=== PATIENT | female | born 1985 | race American Indian/Alaskan Native ===

== ENCOUNTER 2021-01-18 19:04 | Outpatient (CLI) | payer OTHER ==
[2021-01-18 20:41] LABS: Hematocrit 24.3 % (30.3-42.9); Hemoglobin 7.8 gm/dl (10.1-14.3); Mean Corpuscular HGB Conc 32 % (30-34); Mean Corpuscular Volume 75 fl (79-97); Platelet Count 253 K/mm3 (140-440); Red Blood Count 3.24 M/mm3 (3.65-5.03); Red Cell Distribution Width 18.8 % (13.2-15.2)
--- NOTE | 2021-01-18 21:13 | Event Note ---
Date: 01/18/21 SVE unchanged from office and pt denies feeling contractions since presenting to triage. Breech presentation noted; Cat 1 FHT's. Preeclampsia labs ordered for BP's. Dr Moran made aware. No further orders recv'd.
[2021-01-18 21:23] LABS: Alanine Aminotransferase 22 units/L (7-56); Uric Acid 4.4 mg/dL (3.5-7.6)
[2021-01-18 23:35] LABS: Bacteria,Urine 1+ /HPF (Negative); Bilirubin,Urine NEG (Negative); Blood,Urine SM (Negative); Color,Urine Straw (Yellow); Protein,Urine <15 mg/dL mg/dL (Negative); Urobilinogen,Urine < 2.0 mg/dL (<2.0)
[2021-01-18 23:55] VITALS: BP 143/88
--- NOTE | 2021-01-19 00:07 | Event Note ---
Date: 01/18/21 Pt denies having abdominal pain, vision changes, RUQ pain, chest pain, and ORDAZ. VS and lab results reviewed with Dr. Moran. Discharge orders recv'd to be given with preeclampsia precautions. Preeclampsia and labor precautions given to pt. Pt verbalizes understanding. Pt reports chronic anemia, and home Rx for iron supplements and stool softener, but not taking them; advised Ferrous sulfate PO TID, Colace BID; Reviewed risks of surgery with anemia status and plan for CS @39wks EGA. Pt agrees to take Rx as prescribed until after delivery and to call with any changes in SSx.
== END 2021-01-19 00:13 | disposition home or self-care (01) ==
LOC: TRG 19:04 → APU 20:00 → TRG 01-19 00:13
PROVIDERS: ATTEND Obstetrics & Gynecology
DX: I10 Essential (primary) hypertension (principal)
CPT/HCPCS: 36415; 59025; 81001; 82565; 83615; 84450; 84460; 84550; 85027

== ENCOUNTER 2021-01-25 19:53 | Inpatient (IN) | payer OTHER ==
--- NOTE | 2021-01-25 14:47 | History and Physical Report ---
History of Present Illness Date of examination: 01/24/21 Chief complaint: IUP@39 weeks, malpresentation. She desires to proceed with delivery. History of present illness: EDC Calculations by LMP: 01/31/2021 Past History : 4 Term Births: 3 Premature Births: 0 Living Children: 3 Para: 3 Mult. Births: 0 Prev : 0 Prev. attempt? 0 Aborta: 0 Elect. Ab: 0 Spont. Ab: 0 Ectopics: 0 # 1 Delivery date: 2009 Weeks Gestation: 38+0 labor: no Delivery type: Hours of labor: <24hrs Anesthesia type: epidural Delivery location: [facility] [place] Sex: Male weight: 5#11 Comments: IOL for elevated b/p # 2 Delivery date: 2011 Weeks Gestation: 38+0 labor: no Delivery type: Hours of labor: ?? Anesthesia type: epidural Delivery location: [facility] [place] Infant Sex: Male weight: 5# Comments: no complications # 3 Delivery date: 2017 Weeks Gestation: 38+0 labor: no Delivery type: Hours of labor: ?? Anesthesia type: epidural Delivery location: [facility] [place] Infant Sex: Female weight: 5# Comments: No complications Past Medical History: Blood Transfusion (2011) Anemia Past Surgical History: Negative Past Surgical History Past Medical History Surgery (Non-glass presser): Negative Past Surgical History Abnormal PAP: positive, age 19, normal since Family Hx: Breast CA - Mat Aunt Risk Factors: Smoked Tobacco Use: Never smoker Alcohol Use: no Drug Use: no Previous Tobacco Use: HIV High Risk Behavior: low risk No Dietary Counseling Reason: yes Infection History Hx of STD: none HIV Risk Eval: low risk Hepatitis B Risk Eval: low risk Personal hx. of genital herpes: no Partner hx. of genital herpes: no Rash, Viral, or Febrile illness since last LMP? no Varicella/Chicken Pox Status: Immunized TB Risk: no Genetic History Congenital Heart Defect: Mom: no Dad: no Lynn Disease: Mom: no Dad: no Thalassemia Mom: no Dad: no Neural Tube Defect Mom: no Dad: no Down's Syndrome Mom: no Dad: no Roderick-Sachs Mom: no Dad: no Sickle Cell Disease/Trait Mom: no Dad: no Hemophilia Mom: no Dad: no Muscular Dystrophy Mom: no Dad: no Cystic Fibrosis Mom: no Dad: no Adrian Chorea Mom: no Dad: no Mental Retardation Mom: no Dad: no Fragile X Mom: no Dad: no Other Genetic/Chromosomal Disorder Mom: no Dad: no Child w/other defect Mom: no Dad: no Enviromental Exposures Xray Exposure: no Medication, drug, or alcohol use since LMP: no Chemical/Other Exposure: no Exposure to Cat Liter: no Hx of Parvovirus (Fifth Disease): no Occupational Exposure to Children: none Active Medications (reviewed today): None Current Allergies (reviewed today): No known allergies Physical Exam General appearance: well nourished, healthy appearing, no distress Chest/Lungs: respiratory effort normal, lungs clear to auscultation Abdomen/GI: soft, nontender Extremities: no discoloration or edema Care Plan: Malpresentation of fetus (ICD-652.90) ([id number]) Group B streptococcus carrier (ICD-V02.51) (TSK42-J07.330) Anemia in mother cmplg antepartum (ICD-648.23) (WUI12-D03.019) Impression & Recommendations: Problem # 1: Maternal care for breech presentation, fetus 1 ([id number]) Consent reviewed and signed. The risks and alternatives for this surgery were reviewed with the patient. She was informed of possible bleeding, infection, injury to bowel, bladder, ureters or other adjacent organs. The patient was instructed/informed the following: The normal length of hospital stay for this procedure. Nothing to eat or drink after midnight the evening prior to surgery. Wound care instructions given. Infection precautions reviewed, patient to call for any signs or symptoms of infection. The usual discomforts associated with this procedure were detailed. Proper use of pain medicines was reviewed. Patient was given ample opportunity to have all her questions answered before signing informed consent. Problem # 2: Group B streptococcus carrier (ICD-V02.51) (FGJ05-I42.330) Problem # 3: Anemia in mother cmplg , antepartum (ICD-648.23) (ICD10- O99.019) Active Medications: ferrous sulfate 325 mg (65 mg iron) tablet,delayed release (DR/EC) (ferrous sulfate) Take 1 tablet by mouth once a day Past History - Obstetrical History Expected Date of Delivery: 01/31/21 Actual Gestation: 39 Week(s) 1 Day(s) Medications and Allergies Allergies Allergy/AdvReac Type Severity Reaction Status Date / Time No Known Allergies Allergy Unverified 01/18/21 20:10 Active Meds: Active Medications Citric Acid/Sodium Citrate (Bicitra Oral Liqd 30ml) 30 ml PO ONCE ONE Stop: 01/26/21 07:01 Famotidine (Famotidine 20 Mg/2 Ml Inj) 20 mg IV ONCE ONE Stop: 01/26/21 07:01 Lactated Ringer's (Lactated Ringers) 1,000 mls @ 2,250 mls/hr IV PREOP DORIAN Stop: 01/27/21 05:57 Oxytocin/Sodium Chloride (Pitocin/Ns 30 Unit/500ml) 30 units in 500 mls @ 0 mls/hr IV TITR DORIAN; Protocol Cefazolin Sodium (Ancef/Sterile Water 2 Gm/20 Ml) 2 gm in 20 mls @ 80 mls/hr IV PREOP NR; Protocol Metoclopramide HCl (Metoclopramide 10 Mg/2 Ml Inj) 10 mg IV ONCE ONE Stop: 01/26/21 07:01 Results All other labs normal. Assessment and Plan - Patient Problems (1) 39 weeks gestation of Status: Acute (2) Malpresentation of fetus Status: Acute Qualifiers: malpresentation type: breech (3) Carrier of group B Streptococcus Status: Chronic (4) Anemia Status: Chronic
[2021-01-25] MEDS ORDERED: LACTATED RINGERS 1,000 ML ONE (19:54)
[2021-01-25] MEDS ORDERED: BUPIVACAINE /DEX-WATER 0.75% (2 ML) AMPULE INFILTRATI ONE (20:05)
[2021-01-25] MEDS ORDERED: ONDANSETRON 4 MG/2 ML INJ ONE ×2 (20:05→21:38)
--- NOTE | 2021-01-25 20:05 | Event Note ---
Date: 01/25/21 Pt presents to triage with c/o "my water broke an hour ago and I'm having contractions". SVE 4cm/80%/-2 BREECH presentation and grossly ruptured with large amounts of clear fluid. Regular contractions palpating moderate. RN requested to bedside to place monitors, draw labs, and start IV. Pt consented for Section; maternal and risks reviewed including but not limited to infection, bleeding, compromise and/or . Pt verbalizes understanding and agrees to proceed with section at this time. Orders in EMR. Dr. Moran made aware.
[2021-01-25] MEDS ORDERED: LACTATED RINGERS 1,000 ML IV SCH ×2 (20:15→20:30)
--- NOTE | 2021-01-25 20:20 | Anesthesia Day of Surgery ---
Anesthesia Day of Surgery - Day of Surgery Patient Examined: Yes Patient H&P Reviewed: Yes Patient is NPO: No (full meal <2hrs ago)
--- NOTE | 2021-01-25 20:20 | Anesthesia Consultation ---
Anesthesia Consult and Med Hx Date of service: 01/25/21 - Airway Anesthetic Teeth Evaluation: Good ROM Head & Neck: Adequate Mental/Hyoid Distance: Adequate Mallampati Class: Class II Intubation Access Assessment: Good - Pulmonary Exam CTA: Yes - Cardiac Exam Cardiac Exam: RRR - Pre-Operative Health Status ASA Pre-Surgery Classification: ASA1 Proposed Anesthetic Plan: Spinal
[2021-01-25] MEDS ORDERED: BICITRA ORAL LIQD 30ML PO ONE (20:24)
[2021-01-25] MEDS ORDERED: FAMOTIDINE 20 MG/2 ML INJ IV ONE (20:24)
[2021-01-25] MEDS ORDERED: METOCLOPRAMIDE 10 MG/2 ML INJ IV ONE (20:24)
[2021-01-25] MEDS ORDERED: ceFAZolin/Water 2 GM/20 ML 2 GM/20 ML SYRINGE IV NR (20:25)
[2021-01-25] MEDS ORDERED: METOCLOPRAMIDE 10 MG/2 ML INJ IV SCH (21:00)
[2021-01-25] MEDS ORDERED: BICITRA ORAL LIQD 30ML PO SCH (21:00)
[2021-01-25] MEDS ORDERED: SODIUM CHLORIDE 0.9% IRR 1,500 ML BOTTLE IR ONE (21:00)
[2021-01-25] MEDS ORDERED: WATER FOR IRRIG STERILE 1,500 ML BOTTLE IR ONE (21:00)
[2021-01-25] MEDS ORDERED: OXYTOCIN DRIP 30 UNITS/500 ML BAG IV SCH ×3 (21:00→23:53)
[2021-01-25] MEDS ORDERED: ceFAZolin/Water 2 GM/20 ML 2 GM/20 ML SYRINGE IV SCH (21:00)
[2021-01-25] MEDS ORDERED: FAMOTIDINE 20 MG/2 ML INJ IV SCH (21:00)
[2021-01-25] MEDS ORDERED: BUPIVACAINE/PF (0.25%) 2.5 MG/ML 30 ML VIAL INFILTRATI ONE (21:37)
[2021-01-25] MEDS ORDERED: diphenhydrAMINE 50 MG/ML VIAL ONE (21:38)
--- NOTE | 2021-01-25 22:01 | Operative Report ---
Operative Report Operative Report: Date of procedure: January 25, 2021 Pre-operative diagnosis: Intrauterine at 39 weeks with breech p resentation active labor with premature rupture membranes Post-operative diagnosis: Same Procedure name(s): Primary low-transverse section Surgeon: Osmel Moran MD Sr. Manager Corporate Communications: Enedelia Santizo, certified nurse sail finisher hand Anesthesia: Spinal EBL: 800 Complications: None Findings: Female in breech presentation weight 6 pounds 3 ounces Apgars 3 at 1 minute and 9 at 5 minutes.. Normal uterus tubes and ovaries bilaterally Specimen(s): None Procedure: The patient was brought to the operating room. A spinal was placed without any complications. She was then placed in left lateral tilt. Prepped and draped in the usual sterile manner. After testing for adequate anesthesia level, a Pfannenstiel incision was made. This incision was taken down to the fascia. The fascia was then nicked in the midline. This incision was extended out laterally with Harp scissors. The fascia was then sharply and bluntly from the underlying rectus muscles. The rectus muscles were bluntly and sharply . The peritoneum was then entered with the button machine operator's fingers. This incision was spread vertically with care not to damage the bladder below. Mekhi retractor was then placed. The bladder flap was then formed sharply and bluntly with Metzenbaum scissors. A transverse incision was made in lower uterine segment. This incision was extended laterally with the operators fingers. The amniotic sac was then entered bluntly with the button machine operator's fingers. The infant was delivered by delivered in the breech first flexing and extending the lower extremities followed by raising the breech then sweeping flexing and extending the upper extremities and after coming head was then delivered safely. The was bulb suctioned on the mother's abdomen. Cord was double clamped and cut. The infant was then passed to the nursery personnel who were in attendance. The above scores were given by the nursery personnel. The was vigorously crying any operating room. The placenta was then bluntly removed. The uterus was then externalized and wiped clean the remaining products. The uterine incision was closed in layers. The first incision was closed in a locking manner using 0 Vicryl. This was followed by imbricating stitch also with 0 Vicryl. This closure was hemostatic after an additional [id number] suture had to be placed on [place] stitch on the left uterine artery. The bladder flap was copiously irrigated and found to be hemostatic. The pelvis was copiously irrigated and found to be hemostatic. The uterus was then placed back to the patient's abdomen. The retractors were removed. The rectus muscles were inspected and found to be hemostatic. The fascia was then closed in a running manner using 0 Vicryl. This incision was hemostatic irrigation Bovie. The skin was reapproximated with 4-0 Vicryl subcuticularly. Dermabond was placed along the skin incision. The patient tolerated procedure well. Her urine was clear. The was admitted to the well baby nursery. The patient was accompanied to recovery room in good condition. Instrument count correct times 3.
--- NOTE | 2021-01-25 22:04 | Post Anesthesia Evaluation ---
- Post Anesthesia Evaluation Patient Participated: Yes Airway Patent: Yes Stable Respiratory Function: Yes Nausea/Vomiting: No Temp > 96.8F: Yes Pain Manageable: Yes Adequeate Hydration: Yes Anesthesia Complications: No Block Receding Appropriately: Yes Patient on Ventilator: No
--- NOTE | 2021-01-25 22:07 | Progress Note ---
Spinal Anesthesia Block - Spinal Anesthesia Block Start Time: 20:40 Stop Time: 20:45 Performed by:: ELLE CHAIDEZ Procedure: Spinal anesthesia block is being performed for [breach/SRM]. H&P, labs have been reviewed. Patient's questions and concerns have been answered. Informed consent has been performed. Timeout has was performed. Patient in sitting position on side of bed. Sterile prep and drape was performed. 3 mL 1% lidocaine skin wheal at L [3]-L [4]. Needle introducer advanced. 25-gauge spinal needle advanced, [+] CSF [-] blood. [1.2 cc .75 % bupi, w/dextrose and 10 mcg precedex] Spinal dose was given. All needles removed. Patient tolerated procedure well.
--- NOTE | 2021-01-25 22:08 | Progress Note ---
Regional Anesthesia Block - Regional Anesthesia Block Start Time: 21:45 Stop Time: 21:50 Performed By:: ELLE CHAIDEZ Procedure: Patient consented for TAP block for post surgical pain management. Patient identified, monitors placed, and time out performed. Mid axillary TAP identified bilaterally via ultrasound. Skin prepped bilaterally with [chlorhexidine] and [20g stimuplex] needle advanced to the TAP. 30ml [Marcaine 0.25% with 25mcg Precedex and Decadron 5mg] injected under ultrasound guidance on the [left] side. 30ml [Marcaine 0.25% with 25mcg Precedex and Decadron 5mg] injected under ultrasound guidance on the [right] side. Negative aspiration every 5mL, Patient tolerated the procedure well. No apparent complications seen.
[2021-01-25 22:10] LABS: Basophils % (Auto) 0.3 % (0.0-1.8); Eosinophils # (Auto) 0.1 K/mm3 (0.0-0.4); Eosinophils % (Auto) 0.5 % (0.0-4.3); Hematocrit 26.2 % (30.3-42.9); Lymphocytes % (Auto) 14.1 % (13.4-35.0); Mean Corpuscular HGB Conc 31 % (30-34); Mean Corpuscular Volume 75 fl (79-97); Monocytes # (Auto) 1.2 K/mm3 (0.0-0.8); Monocytes % (Auto) 8.3 % (0.0-7.3); Platelet Count 253 K/mm3 (140-440); Red Blood Count 3.51 M/mm3 (3.65-5.03); Red Cell Distribution Width 19.8 % (13.2-15.2)
[2021-01-25] MEDS ORDERED: ONDANSETRON 4 MG/2 ML INJ IV PRN (23:53)
[2021-01-25] MEDS ORDERED: MAGNESIUM HYDROXIDE (MOM) ORAL LIQD UDC PO PRN (23:53)
[2021-01-25] MEDS ORDERED: WITCH HAZEL/ GLYCERIN PAD TP PRN (23:53)
[2021-01-25] MEDS ORDERED: LANOLIN/ZINC/DIMETHICONE (LANSINOH) 7 GM TP PRN (23:53)
[2021-01-25] MEDS ORDERED: NALOXONE 0.4 MG/1 ML INJ IV PRN (23:53)
[2021-01-26] MEDS: KETOROLAC 30 MG/1 ML INJ IV SCH ×3 (01:44→14:25)
[2021-01-26] MEDS: HYDROcodone/ACETAMINOPHEN 5-325 MG TAB PO PRN ×3 (06:10→23:44)
[2021-01-26] MEDS: D5W/LACTATED RINGERS 1,000 ML IV SCH ×2 (06:51→23:45)
[2021-01-26 07:39] LABS: Hematocrit 21.2 % (30.3-42.9); Hemoglobin 6.7 gm/dl (10.1-14.3); Mean Corpuscular HGB Conc 32 % (30-34); Mean Corpuscular Volume 73 fl (79-97); Platelet Count 224 K/mm3 (140-440)
--- NOTE | 2021-01-26 08:15 | Progress Note ---
Assessment and Plan b/p's reviewed elevated with patient, she denies ORDAZ, visual changes or epigastric pain. She does report hx pre-e with previous . plan reviewed for transfer to L&D for mag sulfate therapy, will also initiate oral antihypertensive medications. reviewed anemia and potential for blood transfusion, pt agrees, she has received a transfusion in the past as well. Incision D&I, lochia scant, fundus firm. Baby at bedside bottle feeding. All questions addressed. - Patient Problems (1) delivery delivered Current Visit: Yes Status: Acute Plan to address problem: Continue postop pathway ISS and deep breathing q2hrs Advance diet as tolerated (2) Anemia Current Visit: No Status: Chronic Qualifiers: Anemia type: unspecified type Qualified Code(s): D64.9 - Anemia, unspecified Plan to address problem: transfusion (3) Pre-eclampsia Current Visit: Yes Status: Acute Qualifiers: Trimester: unspecified trimester Qualified Code(s): O14.90 - Unspecified pre-eclampsia, unspecified trimester Plan to address problem: Mag sulfate x 24hrs mag levels q6hr Strict I&O Labetalol 200mg Po BID Subjective - Subjective Date of service: 01/26/21 Principal diagnosis: postop day #1 s/p primary c/s Patient reports: appetite normal, pain well controlled, no nauseated [place]: doing well, bottle feeding Objective - Vital Signs Latest vital signs: Vital Signs Temp Pulse Resp BP BP Pulse Ox Pulse Ox 01/26/21 07:24 18 01/26/21 07:20 105 H 20 147/87 01/26/21 07:10 18 01/26/21 06:55 18 01/26/21 06:42 98.5 F 108 H 18 164/103 100 01/26/21 06:10 20 01/26/21 02:14 18 01/26/21 01:44 18 01/25/21 23:33 97.3 F L 89 16 128/77 98 98 01/25/21 22:50 97.8 F 81 21 121/81 95 01/25/21 22:35 80 20 118/80 92 01/25/21 22:20 84 17 120/78 91 01/25/21 22:05 83 15 118/81 92 01/25/21 21:50 91 H 23 119/77 95 01/25/21 21:45 91 H 12 114/70 95 08/12/21 21:44 97.7 F 92 H 18 110/73 96 Intake and Output 01/25/21 01/26/21 01/26/21 23:59 07:59 15:59 Intake Total 1300 360 Output Total 150 250 Balance 1150 110 Intake: IV 1300 Intake, Free Water 360 Output: Urine 150 250 Indwelling Catheter 250 Uretheral ([place]) 50 Other: Total, Output Amount 250 Weight 57.153 kg Estimated Blood Loss 450 - Labs Labs: Abnormal lab results 01/25/21 01/26/21 Range/Units Unknown 07:10 WBC 14.2 H 20.7 H (4.5-11.0) K/mm3 RBC 3.51 L 2.90 L (3.65-5.03) M/mm3 Hgb 8.0 L 6.7 L (10.1-14.3) gm/dl Hct 26.2 L 21.2 L (30.3-42.9) % MCV 75 L 73 L (79-97) fl MCH 23 L 23 L (28-32) pg RDW 19.8 H 20.0 H (13.2-15.2) % [place] % (Auto) 8.3 H (0.0-7.3) % [place] # (Auto) 1.2 H (0.0-0.8) K/mm3 Seg Neutrophils % 76.8 H (40.0-70.0) % Seg Neutrophils # 10.9 H (1.8-7.7) K/mm3
[2021-01-26] MEDS: SIMETHICONE 80 MG CHEW TAB PO PRN ×3 (08:38→17:33)
[2021-01-26] MEDS ORDERED: MAGNESIUM SULFATE 4 GM/100 ML BAG IV ONE (09:30)
[2021-01-26] MEDS: FERROUS SULFATE 325 MG TAB PO SCH (09:33)
[2021-01-26] MEDS: PRENATAL VIT27-FE FUMARATE-FOLIC ACID VIT TAB PO SCH (09:34)
[2021-01-26] MEDS ORDERED: LACTATED RINGERS 1,000 ML ONE (09:40)
[2021-01-26 10:01] LABS: Hemoglobin 6.1 gm/dl (10.1-14.3); Mean Corpuscular HGB Conc 31 % (30-34); Mean Corpuscular Volume 73 fl (79-97); Platelet Count 220 K/mm3 (140-440); Red Blood Count 2.73 M/mm3 (3.65-5.03); Red Cell Distribution Width 19.6 % (13.2-15.2)
[2021-01-26 10:15] LABS: Hematocrit 19.9 % (30.3-42.9)
[2021-01-26 10:17] LABS: Bilirubin,Urine NEG (Negative); Blood,Urine SM (Negative); Color,Urine Yellow (Yellow); Mucus,Urine 2+ /HPF
[2021-01-26 10:32] LABS: Alanine Aminotransferase 20 units/L (7-56); Uric Acid 4.1 mg/dL (3.5-7.6)
[2021-01-26] MEDS ORDERED: IBUPROFEN 800 MG TAB ONE (10:42)
[2021-01-26] MEDS: MAGNESIUM SULFATE 40GM/1000ML 40 GM/1,000 ML BAG IV SCH (10:45)
[2021-01-26] MEDS ORDERED: SODIUM CHLORIDE 0.9% 500 ML 500 ML IV SCH (11:00)
--- NOTE | 2021-01-26 17:25 | Event Note ---
Date: 01/26/21 Patient c/o right shoulder pain. Pt has not passed gas, will give mylicon and continue to monitor. b/p's are 130's/90's. urine output 35ml/hr, will continue to monitor closely.
[2021-01-26] MEDS: IBUPROFEN 800 MG TAB PO PRN (19:37)
[2021-01-26 19:51] LABS: Hematocrit 21.6 % (30.3-42.9); Hemoglobin 6.7 gm/dl (10.1-14.3)
[2021-01-26] MEDS ORDERED: SODIUM CHLORIDE 0.9% 500 ML 500 ML IV ONE (21:39)
[2021-01-26] MEDS ORDERED: IBUPROFEN 800 MG TAB PO PRN (21:46)
[2021-01-27] MEDS: IBUPROFEN 800 MG TAB PO PRN ×3 (02:34→21:57)
[2021-01-27] MEDS: SIMETHICONE 80 MG CHEW TAB PO PRN (02:59)
[2021-01-27] MEDS: HYDROcodone/ACETAMINOPHEN 5-325 MG TAB PO PRN ×3 (05:36→17:30)
[2021-01-27] MEDS: MAGNESIUM SULFATE 40GM/1000ML 40 GM/1,000 ML BAG IV SCH (08:38)
[2021-01-27] MEDS: PRENATAL VIT27-FE FUMARATE-FOLIC ACID VIT TAB PO SCH (10:36)
[2021-01-27] MEDS: FERROUS SULFATE 325 MG TAB PO SCH ×2 (10:36→23:05)
--- NOTE | 2021-01-27 10:39 | Progress Note ---
Assessment and Plan A: 35 y.o. s/p primary d/t breech presentation POD #2. On mag infusion d/t pre e. S/p blood transfusion d/t anemia. P: Magnesium infusion d/t be turned off @ 1045am. Will transfer to mother/baby unit. Will continue to monitor blood pressures. Post transfusion X2, will call lab to obtain post transfusion H/H. Monitor for worsening s/sx of pre e. Subjective - Subjective Date of service: 01/27/21 (Mag d/t be turned off @ 1045) Principal diagnosis: postop day #2 s/p primary c/s, pre e, mag infusion Patient reports: appetite normal, pain well controlled, flatus Gregory: doing well Objective - Vital Signs Latest vital signs: Vital Signs Temp Pulse Resp BP BP Pulse Ox Pulse Ox 01/27/21 10:30 151 H 84 01/27/21 10:26 94 H 126/77 01/27/21 10:25 77 100 01/27/21 10:23 90 01/27/21 10:18 87 01/27/21 10:14 71 100 01/27/21 10:12 72 90 01/27/21 10:11 91 H 125/89 01/27/21 10:09 39 L 75 L 01/27/21 10:07 148 H 76 L 01/27/21 10:02 83 L 01/27/21 09:57 88 01/27/21 09:56 83 116/75 01/27/21 09:50 75 83 L 01/27/21 09:45 83 84 01/27/21 09:40 90 121/79 70 L 01/27/21 09:32 82 84 01/27/21 09:27 59 L 83 L 01/27/21 09:25 92 H 119/80 01/27/21 09:23 192 H 0 L 01/27/21 09:19 212 H 81 L 01/27/21 09:13 182 H 93 01/27/21 09:10 88 117/79 01/27/21 09:07 88 94 01/27/21 09:04 103 H 84 01/27/21 09:01 92 H 94 01/27/21 08:59 93 H 95 01/27/21 08:55 90 115/79 93 01/27/21 08:54 89 96 01/27/21 08:50 90 94 01/27/21 08:49 90 94 01/27/21 08:45 97 H 92 01/27/21 08:44 94 H 96 01/27/21 08:41 92 H 114/77 01/27/21 08:39 94 H 94 01/27/21 08:38 93 01/27/21 08:34 92 H 92 01/27/21 08:30 98.3 F 93 H 18 108/70 95 01/27/21 08:29 102 H 93 01/27/21 08:26 93 H 108/70 01/27/21 08:25 95 H 94 01/27/21 08:24 95 H 95 01/27/21 08:19 91 H 94 01/27/21 08:17 88 94 01/27/21 08:14 92 H 94 01/27/21 08:11 90 110/75 01/27/21 08:09 93 H 93 01/27/21 08:05 89 93 01/27/21 08:04 88 95 01/27/21 07:59 89 95 01/27/21 07:56 89 119/76 01/27/21 07:55 83 91 01/27/21 07:54 83 93 01/27/21 07:49 89 92 01/27/21 07:44 88 94 01/27/21 07:42 88 94 01/27/21 07:41 92 H 111/80 01/27/21 07:39 88 96 01/27/21 07:34 96 H 95 01/27/21 07:32 93 H 93 01/27/21 07:29 92 H 94 01/27/21 07:26 98 H 111/79 01/27/21 07:25 93 H 94 01/27/21 07:24 92 H 96 01/27/21 07:19 87 95 01/27/21 07:14 90 96 01/27/21 07:11 90 109/70 94 01/27/21 07:09 91 H 96 01/27/21 07:05 95 H 94 01/27/21 07:04 99 H 98 01/27/21 07:00 100 H 93 01/27/21 06:59 98 H 92 01/27/21 06:56 93 H 107/72 01/27/21 06:54 89 95 01/27/21 06:53 92 H 94 01/27/21 06:49 88 96 01/27/21 06:46 90 93 01/27/21 06:44 91 H 96 01/27/21 06:41 93 H 111/78 01/27/21 06:40 97 H 93 01/27/21 06:39 98 H 95 01/27/21 06:34 88 93 01/27/21 06:33 88 94 01/27/21 06:29 87 92 01/27/21 06:27 91 H 93 01/27/21 06:26 93 H 110/76 01/27/21 06:24 97 H 95 01/27/21 06:21 92 H 93 01/27/21 06:19 91 H 96 01/27/21 06:16 89 94 01/27/21 06:14 88 95 01/27/21 06:11 91 H 110/79 01/27/21 06:09 90 94 01/27/21 06:08 91 H 93 01/27/21 06:04 91 H 93 01/27/21 06:00 92 H 93 01/27/21 05:59 93 H 93 01/27/21 05:56 96 H 111/85 01/27/21 05:54 101 H 78 L 01/27/21 05:50 92 H 94 01/27/21 05:49 92 H 95 01/27/21 05:44 97 H 94 01/27/21 05:41 96 H 111/83 01/27/21 05:39 89 94 01/27/21 05:34 89 95 01/27/21 05:29 89 93 01/27/21 05:27 95 H 94 01/27/21 05:26 93 H 114/83 01/27/21 05:24 86 93 01/27/21 05:21 87 94 01/27/21 05:19 90 95 01/27/21 05:14 92 H 93 01/27/21 05:11 89 109/77 01/27/21 05:09 86 93 01/27/21 05:04 86 94 01/27/21 05:03 88 94 01/27/21 04:59 93 H 92 01/27/21 04:56 89 105/75 01/27/21 04:54 89 91 01/27/21 04:53 89 94 01/27/21 04:49 90 93 01/27/21 04:44 88 94 01/27/21 04:41 90 108/78 01/27/21 04:39 89 94 01/27/21 04:37 87 94 01/27/21 04:34 88 92 01/27/21 04:29 90 93 01/27/21 04:26 92 H 107/74 01/27/21 04:24 95 H 92 01/27/21 04:19 91 H 89 01/27/21 04:14 90 91 01/27/21 04:11 88 110/81 01/27/21 04:09 92 H 93 01/27/21 04:04 92 H 92 01/27/21 03:59 93 H 90 01/27/21 03:56 90 112/80 01/27/21 03:54 93 H 90 01/27/21 03:51 87 89 01/27/21 03:49 85 96 01/27/21 03:44 87 94 01/27/21 03:41 83 108/76 94 01/27/21 03:39 83 98 01/27/21 03:35 84 94 01/27/21 03:34 83 96 01/27/21 03:29 91 H 95 01/27/21 03:28 87 86 01/27/21 03:26 86 105/75 01/27/21 03:24 85 94 01/27/21 03:20 88 94 01/27/21 03:19 89 97 01/27/21 03:15 88 92 01/27/21 03:14 91 H 95 01/27/21 03:11 85 106/75 01/27/21 03:10 87 94 01/27/21 03:09 87 94 01/27/21 03:04 89 97 01/27/21 02:59 89 96 01/27/21 02:57 92 H 92 01/27/21 02:54 90 98 01/27/21 02:51 87 92 01/27/21 02:49 88 94 01/27/21 02:46 91 H 93 01/27/21 02:44 88 97 01/27/21 02:41 86 108/79 01/27/21 02:39 86 96 01/27/21 02:34 88 97 01/27/21 02:29 87 96 96 01/27/21 02:26 84 112/75 01/27/21 02:24 85 96 01/27/21 02:23 84 113/73 01/27/21 02:20 91 H 94 01/27/21 02:19 91 H 94 01/27/21 02:18 88 106/67 01/27/21 02:14 89 94 01/27/21 02:09 85 96 01/27/21 02:07 104/68 01/27/21 02:04 87 94 01/27/21 02:02 85 105/69 94 01/27/21 01:59 87 94 01/27/21 01:57 85 102/69 01/27/21 01:56 86 94 01/27/21 01:54 85 95 01/27/21 01:52 83 103/67 01/27/21 01:49 89 94 01/27/21 01:48 86 101/58 01/27/21 01:47 85 93 01/27/21 01:44 85 96 01/27/21 01:40 79 93 01/27/21 01:39 85 97 01/27/21 01:37 83 98/62 01/27/21 01:34 87 95 01/27/21 01:32 85 93/55 01/27/21 01:29 90 94 01/27/21 01:28 88 87/54 01/27/21 01:24 83 94 01/27/21 01:23 87 109/72 01/27/21 01:19 89 98 01/27/21 01:18 95 H 103/67 91 01/27/21 01:14 79 100 01/27/21 01:12 97.4 F L 80 17 112/75 97 01/27/21 01:09 82 100 01/27/21 01:07 82 108/73 01/27/21 01:04 82 100 01/27/21 01:02 81 107/72 01/27/21 00:59 82 100 01/27/21 00:57 81 107/75 01/27/21 00:54 82 104/68 99 01/27/21 00:49 89 88 01/27/21 00:48 88 100/59 01/27/21 00:44 92 H 97 01/27/21 00:42 92 H 18 97/67 99 01/27/21 00:39 83 98 01/27/21 00:37 81 17 100/70 100 01/27/21 00:34 80 100 01/27/21 00:32 82 100/68 01/27/21 00:29 81 99 01/27/21 00:27 83 17 100/68 99 01/27/21 00:24 81 100 01/27/21 00:22 97.7 F 87 17 104/67 99 01/27/21 00:21 80 104/67 01/27/21 00:19 82 100 01/27/21 00:14 87 96 01/27/21 00:09 74 92 01/27/21 00:08 82 92 01/27/21 00:04 83 99 01/27/21 00:00 83 102/64 01/26/21 23:59 87 98 01/26/21 23:54 87 90 01/26/21 23:50 84 93 01/26/21 23:49 84 94 01/26/21 23:48 97.3 F L 18 96 01/26/21 23:44 84 95 01/26/21 23:39 85 95 01/26/21 23:34 83 96 01/26/21 23:30 83 108/73 01/26/21 23:29 86 96 01/26/21 23:26 88 90 01/26/21 23:24 86 96 01/26/21 23:19 86 96 01/26/21 23:14 92 H 96 01/26/21 23:09 91 H 97 01/26/21 23:04 95 H 97 01/26/21 23:02 95 H 94 01/26/21 22:59 98 H 97 01/26/21 22:54 87 92 01/26/21 22:53 100 H 92 01/26/21 22:49 93 H 98 01/26/21 22:45 96 H 93 01/26/21 22:44 97 H 96 01/26/21 22:39 99 H 96 01/26/21 22:37 98 H 94 01/26/21 22:34 97 H 96 01/26/21 22:31 98 H 94 01/26/21 22:30 94 H 137/86 01/26/21 22:29 94 H 96 01/26/21 22:26 93 H 92 01/26/21 22:24 97 H 98 01/26/21 22:19 88 97 01/26/21 22:15 98 H 94 01/26/21 22:14 94 H 96 01/26/21 22:10 98 H 94 01/26/21 22:09 91 H 96 01/26/21 22:04 95 H 96 01/26/21 22:03 103 H 93 01/26/21 22:00 101 H 149/97 01/26/21 21:59 98 H 97 01/26/21 21:54 99 H 94 01/26/21 21:51 93 H 94 01/26/21 21:49 106 H 92 01/26/21 21:44 97 H 94 01/26/21 21:41 96 H 94 01/26/21 21:39 100 H 94 01/26/21 21:36 97 H 94 01/26/21 21:34 97 H 94 01/26/21 21:30 99 H 143/89 93 01/26/21 21:29 102 H 96 01/26/21 21:24 102 H 98 01/26/21 21:19 104 H 99 01/26/21 21:14 89 97 01/26/21 21:09 93 H 98 01/26/21 21:04 90 97 01/26/21 21:00 95 H 137/92 01/26/21 20:59 93 H 97 01/26/21 20:58 101 H 93 01/26/21 20:54 93 H 97 01/26/21 20:49 92 H 99 01/26/21 20:45 99 01/26/21 20:44 97 H 97 01/26/21 20:39 97 H 99 01/26/21 20:34 96 H 90 01/26/21 20:30 100 H 130/81 01/26/21 20:29 98 H 83 L 01/26/21 20:24 104 H 90 01/26/21 20:23 105 H 93 01/26/21 20:19 101 H 89 01/26/21 20:14 101 H 88 01/26/21 20:09 102 H 90 01/26/21 20:04 104 H 97 01/26/21 20:01 105 H 94 01/26/21 20:00 100 H 131/92 01/26/21 19:59 101 H 95 01/26/21 19:56 104 H 94 01/26/21 19:54 101 H 96 01/26/21 19:51 104 H 94 01/26/21 19:49 103 H 95 01/26/21 19:46 104 H 91 01/26/21 19:44 95 H 97 01/26/21 19:39 95 H 98 01/26/21 19:34 94 H 98 01/26/21 19:30 93 H 137/93 01/26/21 19:29 95 H 98 01/26/21 19:27 97.8 F 16 98 01/26/21 19:24 97 H 100 01/26/21 19:19 99 H 98 99 01/26/21 19:14 103 H 97 01/26/21 19:09 100 H 100 01/26/21 19:04 99 H 99 01/26/21 19:00 100 H 135/90 01/26/21 18:59 96 H 91 01/26/21 18:54 100 H 92 01/26/21 18:49 100 H 94 01/26/21 18:44 98 H 93 01/26/21 18:39 101 H 93 01/26/21 18:36 98 H 94 01/26/21 18:34 95 H 131/84 99 01/26/21 18:02 100 H 96 01/26/21 18:01 101 H 86 01/26/21 18:00 98 H 120/77 01/26/21 17:57 101 H 95 01/26/21 17:55 108 H 92 01/26/21 17:52 100 H 92 01/26/21 17:50 102 H 92 01/26/21 17:47 99 H 94 01/26/21 17:45 99 H 94 01/26/21 17:42 99 H 96 01/26/21 17:39 103 H 91 01/26/21 17:37 100 H 96 01/26/21 17:32 104 H 94 01/26/21 17:30 103 H 130/90 01/26/21 17:27 99 H 93 01/26/21 17:26 101 H 94 01/26/21 17:22 99 H 91 01/26/21 17:17 109 H 88 01/26/21 17:16 107 H 93 01/26/21 17:12 109 H 84 01/26/21 17:07 103 H 95 01/26/21 17:02 97 H 95 01/26/21 17:01 105 H 93 01/26/21 17:00 101 H 139/96 99 01/26/21 16:57 101 H 98 01/26/21 16:52 99 H 97 01/26/21 16:50 100 H 93 01/26/21 16:47 102 H 97 01/26/21 16:42 98 H 99 01/26/21 16:40 93 H 93 01/26/21 16:37 100 H 98 01/26/21 16:32 102 H 96 01/26/21 16:31 100 H 132/96 01/26/21 16:27 99 H 99 01/26/21 16:22 100 H 98 01/26/21 16:17 100 H 100 01/26/21 16:12 101 H 99 01/26/21 16:11 104 H 93 01/26/21 16:07 102 H 100 01/26/21 16:02 100 H 99 01/26/21 16:00 90 133/94 01/26/21 15:57 93 H 93 01/26/21 15:52 95 H 97 01/26/21 15:50 96 H 127/81 01/26/21 15:47 97 H 95 01/26/21 15:46 97 H 94 01/26/21 15:42 98 H 95 01/26/21 15:41 99 H 94 01/26/21 15:37 102 H 97 01/26/21 15:33 98 H 94 01/26/21 15:32 98 H 96 01/26/21 15:27 100 H 93 01/26/21 15:22 95 H 98 01/26/21 15:21 93 H 94 01/26/21 15:17 92 H 97 01/26/21 15:12 92 H 100 01/26/21 15:09 94 H 136/90 01/26/21 15:07 90 100 01/26/21 15:02 91 H 99 01/26/21 15:00 89 133/93 01/26/21 14:57 93 H 98 01/26/21 14:52 93 H 99 01/26/21 14:47 92 H 99 01/26/21 14:42 93 H 99 01/26/21 14:37 92 H 98 01/26/21 14:32 97 H 95 01/26/21 14:30 96 H 123/90 94 01/26/21 14:27 97.9 F 93 H 96 97 01/26/21 14:25 16 01/26/21 14:22 95 H 97 01/26/21 14:17 101 H 93 01/26/21 14:12 94 H 98 01/26/21 14:07 92 H 99 01/26/21 14:02 88 99 01/26/21 13:57 89 99 01/26/21 13:55 90 126/91 01/26/21 13:52 89 98 01/26/21 13:47 89 100 01/26/21 13:42 91 H 100 01/26/21 13:40 91 H 123/89 01/26/21 13:37 87 100 01/26/21 13:32 95 H 100 01/26/21 13:28 98 01/26/21 13:27 91 H 100 01/26/21 13:25 87 124/83 01/26/21 13:24 97.6 F 01/26/21 13:22 92 H 99 01/26/21 13:17 92 H 99 01/26/21 13:12 94 H 100 01/26/21 13:10 91 H 123/80 01/26/21 13:07 95 H 98 01/26/21 13:02 94 H 99 01/26/21 13:01 98.3 F 93 H 120/80 01/26/21 12:57 98 H 94 01/26/21 12:56 97 H 94 01/26/21 12:52 96 H 99 01/26/21 12:47 92 H 98 01/26/21 12:45 98.3 F 01/26/21 12:42 90 98 01/26/21 12:41 92 H 122/78 01/26/21 12:37 90 98 01/26/21 12:32 89 96 01/26/21 12:27 92 H 98 01/26/21 12:25 88 118/78 01/26/21 12:24 97.9 F 88 16 118/78 99 01/26/21 12:22 88 99 01/26/21 12:21 99 01/26/21 12:17 87 98 01/26/21 12:12 89 89 01/26/21 12:10 88 112/71 01/26/21 12:09 98.0 F 89 14 112/71 90 01/26/21 12:07 90 92 01/26/21 12:02 88 90 01/26/21 11:59 88 01/26/21 11:57 87 89 01/26/21 11:53 92 H 119/73 93 01/26/21 11:52 91 H 92 01/26/21 11:47 92 H 90 01/26/21 11:42 92 H 86 01/26/21 11:37 94 H 90 01/26/21 11:33 87 01/26/21 11:32 91 H 92 01/26/21 11:27 93 H 92 96 01/26/21 11:26 92 H 92 01/26/21 11:22 86 121/84 91 01/26/21 11:17 92 H 87 01/26/21 11:13 93 H 94 01/26/21 11:12 91 H 95 01/26/21 11:07 93 H 92 01/26/21 11:02 91 H 93 01/26/21 11:01 93 H 127/88 01/26/21 10:57 94 H 94 01/26/21 10:56 92 H 93 01/26/21 10:52 93 H 95 01/26/21 10:51 95 H 94 01/26/21 10:47 90 95 01/26/21 10:46 91 H 129/84 94 01/26/21 10:44 22 01/26/21 10:42 91 H 96 01/26/21 10:40 91 H 94 01/26/21 10:37 91 H 97 Intake and Output 01/26/21 01/27/21 01/27/21 22:59 06:59 14:59 Intake Total 0 1250 Output Total 570 315 Balance -570 935 Intake: IV 1000 MAGNESIUM SULFATE 40GM/ 1000 1000ML 40 gm In 1,000 ml @ 2 GM/HR 50 mls/hr IV DIRECT DORIAN Rx#:[id number] Blood Product 0 250 Leukoreduced Red Blood 250 Cells Unit [id number] Leukoreduced Red Blood 0 Cells Unit [id number] Output: Urine 570 315 Indwelling Catheter 570 315 Other: Total, Output Amount 250 60 - Exam Narrative Exam: Pt is doing well. Denies ORDAZ, blurred vision, spots before her eyes, shortness of breath, chest pain, and upper abdominal pain. We discussed should theses sympt oms occur she will let the nurse know immediately. Blood pressure ranges have been 110's-120's/70-80's. Pt had blood transfusion X 2 d/t post op anemia. Will call lab to check on progress of re draw of H/H ordered for this AM. Breasts: Present: deferred Cardiovascular: Present: Normal S1, Normal S2 Lungs: Present: Clear to auscultation Abdomen: Present: normal appearance, other (hypoactive bowel sounds) Vulva: both: normal Uterus: Present: normal, firm Extremities: Present: normal Deep Tendon Reflex Grade: Normal +2 Incision: Present: normal, dry, intact, other (No drainage or s/sx of infection noted. ) - Labs Labs: Abnormal lab results 01/25/21 01/26/21 01/26/21 Range/Units Unknown 09:37 19:32 Hgb (10.1-14.3) gm/dl Hct (30.3-42.9) % Creatinine 0.4 L (0.6-1.2) mg/dL Magnesium 5.10 H (1.7-2.3) mg/dL Crossmatch See Detail 01/26/21 01/26/21 01/27/21 Range/Units 19:32 23:45 05:30 Hgb 6.7 L (10.1-14.3) gm/dl Hct 21.6 L (30.3-42.9) % Creatinine (0.6-1.2) mg/dL Magnesium 5.30 H 6.00 H (1.7-2.3) mg/dL Crossmatch
[2021-01-27 11:32] LABS: Hematocrit 22.6 % (30.3-42.9); Hemoglobin 7.2 gm/dl (10.1-14.3)
[2021-01-28] MEDS: HYDROcodone/ACETAMINOPHEN 5-325 MG TAB PO PRN ×2 (03:32→09:11)
[2021-01-28] MEDS: FERROUS SULFATE 325 MG TAB PO SCH (09:12)
[2021-01-28] MEDS: PRENATAL VIT27-FE FUMARATE-FOLIC ACID VIT TAB PO SCH (09:12)
--- NOTE | 2021-01-28 09:25 | Discharge Summary ---
Providers - Providers Date of Admission: 01/25/21 19:53 Date of discharge: 01/28/21 (Pt has strong desire to go home. ) Attending physician: IRIS HAMILTON 01/25/21 23:53 Consult to Radio Board Operator [CONS] Routine Reason For Exam: Primary care physician: IRIS HAMILTON Hospitalization Disposition: 30 STILL A PATIENT Plan - Discharge Medications Prescriptions: Docusate Sodium [Colace] 100 mg PO BID PRN #60 capsule PRN Reason: Constipation Ferrous Sulfate [Feosol 325 MG tab] 325 mg PO BID #60 tablet labetaloL [Labetalol 200mg TAB] 200 mg PO BID #60 tablet Ibuprofen [Motrin] 800 mg PO TID PRN #30 tablet PRN Reason: Pain oxyCODONE /ACETAMINOPHEN [Percocet 5/325 mg] 1 - 2 tab PO Q6HR PRN #20 tablet PRN Reason: Pain - Provider Discharge Summary Additional instructions: [] Smoking cessation referral if applicable(refer to patient education folder for contact #) [] Refer to [facility]'s [facility] Booklet Call your doctor immediately for: * Fever > 100.5 * Heavy vaginal bleeding ( >1 pad per hour) * Severe persistent headache * Shortness of breath * Reddened, hot, painful area to leg or breast * Drainage or odor from incision. * Keep incision clean and dry at all times and follow doctor's instructions regarding bathing/showering - Follow up plan Follow up: IRIS HAMILTON MD [Primary Care Provider] - 7 Days
--- NOTE | 2021-01-28 09:43 | Event Note ---
Date: 01/28/21 (elevated blood pressures) Received call from RN that patient has some elevated blood pressures this morning. There are currently 140's/90's. The range has been 110's-120's/60-80's. Per RN the patient was in pain. Will re-assess blood pressure in 2 hours and if lower will allow discharge home.
[2021-01-28 12:21] VITALS: BP 135/85
--- NOTE | 2021-01-28 12:53 | Discharge Summary ---
Providers - Providers Date of Admission: 01/25/21 19:53 Date of discharge: 01/28/21 (Pt has a very strong desire to go home. ) Attending physician: IRIS HAMILTON 01/25/21 23:53 Consult to Sawmill Moulder Operator [CONS] Routine Reason For Exam: Primary care physician: IRIS HAMILTON Hospitalization Reason for admission: active labor Delivery: Procedure: primary low transverse (d/t breech presentation. ) Episiotomy: none Laceration: none Incision: normal, dry, intact complications: other (Pre eclampsia. ) Discharge diagnosis: IUP at term delivered baby: female Pertinent studies: Pt denies ORDAZ, blurred vision, spots before her eyes, shortness of breath, chest pain, upper abdominal pain, dizziness and feeling light headed. We discussed how to take a proper blood pressure at home and when to call the financial foundations representative provider with questions/concerns. Hospital course: S: Pt doing well. Ambulating, voiding, and passing flatus okay. BC: BTL. O: VSS. Blood pressure ranges have mostly been 110's-140's 60-80's. H/H 7.2/22.6, asymptomatic anemia of surgery. Fundus firm, minimal bleeding noted. Incision open to air, intact, no drainage, or s/sx of infection noted. A: 35 y.o. s/p primary , POD#2, d/t breech and pre e s/p mag. In good condition and can be discharged home. P: Discharge home with instructions. Pt to schedule a blood pressure and incision check in the office in 1 week. Condition at discharge: Good Disposition: 01 HOME / SELF CARE / HOMELESS Plan - Discharge Medications Prescriptions: Docusate Sodium [Colace] 100 mg PO BID PRN #60 capsule PRN Reason: Constipation Ferrous Sulfate [Feosol 325 MG tab] 325 mg PO BID #60 tablet labetaloL [Labetalol 200mg TAB] 200 mg PO BID #60 tablet Ibuprofen [Motrin] 800 mg PO TID PRN #30 tablet PRN Reason: Pain oxyCODONE /ACETAMINOPHEN [Percocet 5/325 mg] 1 - 2 tab PO Q6HR PRN #20 tablet PRN Reason: Pain - Provider Discharge Summary Activity: routine, no sex for 6 weeks, no heavy lifting 4 weeks, no strenuous exercise Diet: routine Instructions: routine Additional instructions: [] Smoking cessation referral if applicable(refer to patient education folder for contact #) [] Refer to [facility]'s [facility] Booklet Call your doctor immediately for: * Fever > 100.5 * Heavy vaginal bleeding ( >1 pad per hour) * Severe persistent headache * Shortness of breath * Reddened, hot, painful area to leg or breast * Drainage or odor from incision. * Keep incision clean and dry at all times and follow doctor's instructions regarding bathing/showering Congratulations on the of your baby girl! Please schedule your blood pressure check and incision check in the office in 1 week. Should you have any questions or concerns after discharge, please do not hesitate to call the office at [phone]. Taking your blood pressure at home Please take your blood pressure at least once daily Take your blood pressure medication as written by your provider Taking your blood pressure with a wrist monitor: 1. Put the blood pressure cuff on your wrist. Make sure it is not on the bone of your wrist. 2. Sit with your legs uncrossed and feet flat on the ground. 3. Wait 5-10 minutes before taking your blood pressure. 4. If you wrist monitor requires you to put your arm across your chest: After 5-10 minutes, put your arm across your chest like you are about to say the pledge of allegiance. Taking your blood pressure with a cuff monitor: 1. Put the blood pressure cuff on your arm. 2. Sit with your legs uncrossed and feet flat on the ground. Make sure your arm is relaxed on a table or your kitchen table and bent at a 90 degree angle. 3. After 5-10 minutes push the button to take your blood pressure. While you are at home, if you experience a headache, blurred vision, spots before your eyes, chest pain, shortness of breath, and pain in your upper belly, and/or your blood pressure is 140/90 or greater please call the on-call provider immediately. - Follow up plan Follow up: IRIS HAMILTON MD [Primary Care Provider] - 7 Days Forms: [facility] Discharge Summary
--- NOTE | 2021-01-30 10:48 | History and Physical Report ---
History of Present Illness Date of examination: 01/25/21 Date of admission: 01/25/2021 Chief complaint: "my water broke and I'm feeling contractions" History of present illness: charting on this note suspended d/t registration issue. Note may be deleted. H&P created on correct chart. Past History Past Medical History: other (see HPI) Past Surgical History: other (see HPI) POULTRY HANGER History: other (see HPI) Family/Genetic History: other (see HPI) Social history: other (see HPI) - Obstetrical History Expected Date of Delivery: 01/31/21 Actual Gestation: 39 Week(s) 5 Day(s) Medications and Allergies Allergies Allergy/AdvReac Type Severity Reaction Status Date / Time No Known Allergies Allergy Verified 01/26/21 01:55 Home Medications Medication Instructions Recorded Confirmed Last Taken Type Ferrous Sulfate [Feosol 325 MG tab] 325 mg PO BID #60 tablet 01/25/21 Unknown Rx Ibuprofen [Motrin] 800 mg PO TID PRN #30 tablet 01/25/21 Unknown Rx Iron 2 tab PO DAILY 01/25/21 01/25/21 01/25/21 10:00 History oxyCODONE /ACETAMINOPHEN [Percocet 1 - 2 tab PO Q6HR PRN #20 tablet 01/25/21 Unknown Rx 5/325 mg] Docusate Sodium [Colace] 100 mg PO BID PRN #60 capsule 01/28/21 Unknown Rx labetaloL [Labetalol 200mg TAB] 200 mg PO BID #60 tablet 01/28/21 Unknown Rx Review of Systems All systems: negative Genitourinary: leakage of fluid, contractions - Physical Exam Breasts: Positive: deferred Cardiovascular: Regular rate Lungs: Positive: Normal air movement Abdomen: Positive: normal appearance, soft. Negative: tenderness Genitourinary (Female): Positive: normal external genitalia, normal perenium Vulva: both: normal Vagina: Positive: discharge Uterus: Positive: normal size, normal contour. Negative: tender Anus/Rectum: Positive: normal perianal skin Extremities: Positive: normal - Obstetrical Uterine Contraction Monitor Mode: Palpation Cervical Dilatation: 4 Cervical Effacement Percentage: 80 station: -2 Uterine Contraction Pattern: Regular Uterine Tone Measurement Phase: Contraction Uterine Contraction Intensity: Moderate Results Result Diagrams: 01/27/21 11:15 01/26/21 09:37 All other labs normal.
== END 2021-01-28 14:21 | disposition home or self-care (01) | DRG 765 ==
LOC: APU 19:53 → OB 23:52 → LD 01-26 10:03 → OB 01-27 11:19
PROVIDERS: ADMIT Obstetrics & Gynecology; ATTEND Obstetrics & Gynecology
PROC: 10D00Z1 Extraction of Products of Conception, Low, Open Approach (ICD-10-PCS; principal; 2021-01-25)
PROC: 30233N1 Transfusion of Nonautologous Red Blood Cells into Peripheral Vein, Percutaneous Approach (ICD-10-PCS; 2021-01-26)
DX: O32.1XX0 Maternal care for breech presentation, not applicable or unspecified (principal); D62 Acute posthemorrhagic anemia; O42.92 Full-term premature rupture of membranes, unspecified as to length of time between rupture and onset of labor; O99.824 Streptococcus B carrier state complicating childbirth; O14.94 Unspecified pre-eclampsia, complicating childbirth; Z20.822 Contact with and (suspected) exposure to COVID-19; Z3A.39 39 weeks gestation of pregnancy; Z37.0 Single live birth; Z80.3 Family history of malignant neoplasm of breast; O90.81 Anemia of the puerperium
CPT/HCPCS: 36415; 81001; 82565; 83615; 83735; 84450; 84460; 84550; 85014; 85018; 85025; 85027; 86850; 86900; 86901; 86920; 87086; G0378; J0690; J1200; J1885; J2405; J2590; J2765; J3475; J3490; J7120; J7121; P9016; U0003